=== PATIENT | male | born 1925 | race Caucasian/White ===

== ENCOUNTER 2016-07-07 12:00 | Inpatient (IN) | payer OTHER ==
[~2016-07-07] VITALS: Ht 170.2 cm; Wt 98.1 kg
[~2016-07-07 12:00] MED LIST: AMIO100T4 PO; ASPI-650 PO; COU3 PO; METO25TA7 PO; ROSU20TA PO
[2016-07-07] MEDS ORDERED: WARF1TAB PO (16:10)
--- NOTE | 2016-07-07 16:11 | RADRPT ---
PROCEDURE: CT Abdomen and Pelvis without contrast. CLINICAL INDICATION: Pain. TECHNIQUE: Multiple contiguous axial CT images of the abdomen and pelvis were obtained without the administration of intravenous contrast. Coronal and sagittal reconstructions were also performed. CTDIvol (mGy): 20.89; Total Exam DLP (mGy-cm): 1292.68. One or more of the following dose reduction techniques were utilized: - Automated exposure control. - Adjustment of the mA and/or kV according to patient size. - Use of iterative reconstruction technique. COMPARISON: 03/25/2016. FINDINGS: Limited imaging of the lower thorax is unremarkable. The liver and spleen are homogeneous in density. There is a 1.7 cm stone within the gallbladder lum en. The gallbladder is not distended. There is no gallbladder wall thickening or pericholecystic e sherry. An internal biliary stent is now in place. Mild pneumobilia is observed. Fatty atrophy of t he pancreas is present. The adrenal glands are unremarkable. The kidneys are symmetric in size. There are no nephroureteral stones. There is no hydronephrosis o r abnormal perinephric inflammation. Right renal cysts are unchanged. The abdominal aorta is normal in caliber. Atherosclerotic calcification is present. There is no per iaortic / retroperitoneal lymphadenopathy. The stomach is collapsed. The small intestines are unremarkable. Diffuse diverticulosis is present . There is a large left inguinal hernia containing a small portion of the sigmoid colon which conta ins a small cluster of diverticula. There is marked inflammatory edema within the hernia sac which may be a result of acute diverticulitis. There is no evidence of pneumatosis or pneumoperitoneum. T here is no dilatation of the bowel within the hernia sac. There is no associated intestinal obstruc tion. There is a slightly smaller fat containing right inguinal hernia. Surgical changes compatible with umbilical hernia repair are now observed. Mild residual fat stranding within the periumbilical soft tissues is present. The bladder is partially distended and normal in contour with mild concentric wall thickening. Ther e is mild dilatation of the prostatic urethra which may be a result of prior TURP. There is no free pelvic fluid. There is no pelvic sidewall or inguinal lymphadenopathy. Severe multilevel degenerative disk disease of the lumbar spine is present. Median sternotomy wires are partially visualized. IMPRESSION: Large left inguinal hernia containing a small portion of sigmoid colon, which contains a small clust er of diverticula. There is marked inflammatory edema within the hernia sac which may be a result o f acute diverticulitis. Edema as a result of incarcerated inguinal hernia cannot be excluded. Vladimir elate with appropriate clinical data. No intestinal obstruction. Cholelithiasis. No evidence of acute cholecystitis. Interval placement of internal biliary stent with mild pneumobilia. RPTAT: HLST .Avril Guidry MD, MD Date Time Electronically viewed and signed by .Avril Guidry MD, on 07/07/2016 16:11 .T/
[2016-07-07] MEDS ORDERED: AMIO200T2 PO (16:13)
[2016-07-07] MEDS ORDERED: SOD CHLORIDE 0.9% 1,000 ML IV STA (16:33)
[2016-07-07 17:16] LABS: HEMATOCRIT 33.2 % (42.0-52.0); HEMOGLOBIN 11.1 g/dl (14.0-18.0); MEAN CORPUSCULAR HEMOGLOBIN 27.4 pg (29.0-33.0); MEAN CORPUSCULAR HGB CONC 33.3 g/dl (32.0-37.0); MEAN CORPUSCULAR VOLUME 82.2 fl (82.0-101.0); MEAN PLATELET VOLUME 7.9 fl (7.4-10.4); PLATELET COUNT 129 10^3/UL (140-440); RED BLOOD COUNT 4.04 10^6/ul (4.70-6.10); RED CELL DISTRIBUTION WIDTH 16.2 % (11.5-14.5); UNCORRECTED WBC 5.2 10^3/ul (4.8-10.8); WHITE BLOOD COUNT 5.2 10^3/ul (4.8-10.8)
[2016-07-07 17:17] LABS: ALBUMIN 3.6 g/dl (3.3-4.9); INR 2.16; PROTIME 24.3 Sec (12.2-14.2); PT RATIO 1.9
[2016-07-07 17:18] LABS: POTASSIUM 4.4 mmol/L (3.5-5.1)
[2016-07-07 17:19] LABS: CONDITION 1; LH ANALYZER COMMENTS 1
--- NOTE | 2016-07-07 17:19 | ERA ---
ER Documentation Chief Complaint Date/Time DATE: 07/07/16 TIME: 17:08 Chief Complaint SENT BY PMD FOR ABD PAIN, HERNIA TO LEFT LOWER AND TESTICULAR AREA. HPI 89-year-old man referred here by his PMD for left lower abdominal swelling and discomfort which occurred today while he was straining on the toilet. The pain radiates down to the left scrotum although patient denies any obvious scrotal deformity or discoloration. Patient does have a history of ventral and inguinal hernias post laparoscopic resection a few months ago ROS All systems reviewed and are negative except as per history of present illness. Medications Home Meds Reported Medications Amiodarone Hcl* (Amiodarone Hcl*) 200 Mg Tablet, 100 MG PO DAILY, #30 TAB 07/07/16 Warfarin Sodium* (Jantoven*) 1 Mg Tablet, 1 MG PO TID, TAB 07/07/16 Metoprolol Succinate* (Toprol XL*) 25 Mg Tab.sr.24h, 25 MG PO BID, #30 TAB 04/05/16 Aspirin (Aspirin) 81 Mg Tablet, 81 MG PO DAILY for PRN PATIENT TAKE ASPIRIN NEEDED 02/05/12 Rosuvastatin Calcium* (Crestor*) 20 Mg Tablet, 20 MG PO HS 06/17/11 Discontinued Reported Medications Warfarin Sod (Coumadin) 3 Mg Tab, 3 MG PO, TAB THURSDAY, THURSDAY, THURSDAY, THURSDAY, AND THURSDAY, (NOT TUESDAYS AND THURSDAYS). 04/05/16 Warfarin Sod (Coumadin) 3 Mg Tab, 4 MG PO, TAB ON TUESDAYS AND THURSDAYS ONLY. 04/05/16 Amiodarone Hcl* (Amiodarone Hcl*) 100 Mg Tablet, 50 MG PO DAILY, #30 TAB 04/05/16 Allergies Allergies: Coded Allergies: No Known Allergy (Verified , 07/07/16) PMhx/Soc Aortic valve replacement, recent ventral and inguinal hernias post laparoscopic resection History of Surgery: Yes Anesthesia Reaction: No Hx Neurological Disorder: No Hx Respiratory Disorders: No Hx Cardiac Disorders: Yes Hx Psychiatric Problems: No Hx Miscellaneous Medical Probl: Yes (pls see EMR) Hx Alcohol Use: Yes Hx Substance Use: No Hx Tobacco Use: Yes Smoking Status: Never smoker FmHx Family History: No diabetes Physical Exam Vitals Vital Signs Date Time Temp Pulse Resp B/P Pulse Ox O2 Delivery O2 Flow Rate FiO2 07/07/16 12:17 98.5 64 20 144/82 97 Physical Exam GENERAL: Well-developed, well-nourished, well-hydrated, in no apparent distress , looks nontoxic in appearance HEENT: Moist mucous membranes, pink conjunctiva, no cervical spine tenderness or step-off deformities, no goiter, no jaundice or icterus, extraocular movements intact without pain. No submandibular induration, and no pharyngeal erythema NEURO: Alert and oriented 3, cranial nerves II through XII intact bilaterally, pupils equal round reactive to light, no focal deficits or facial asymmetry, sensation intact distally Strength 5/5 in upper and lower extremities bilaterally CARDIAC: Regular rate and rhythm, no murmurs rubs or gallops LUNGS: Clear bilaterally no wheezing crackles or stridor ABDOMEN: Large left lower inguinal hernia about the size of a golf ball, firm and tender to touch, irreducible, no skin discoloration, scrotum appears normal , otherwise abdomen is benign to touch SKIN: Warm and dry to touch, no abrasions, contusions, or hematomas, no lacerations, no ecchymosis, no target lesions, and without ulcers EXTREMITIES: No clubbing cyanosis or edema, calves are bilaterally symmetrical, no Homans sign, no popliteal cord sign. Distal pulses equal and bilateral PSYCH: Normal affect without agitation or irritability Result Diagram: 07/07/16 1640 07/07/16 1640 Results 24 hrs Laboratory Tests Test 07/07/16 16:40 07/07/16 17:23 Alanine Aminotransferase (ALT/SGPT) 20IU/L Albumin 3.6g/dl Albumin/Globulin Ratio 1.02 Alkaline Phosphatase 92IU/L Anion Gap 14 Aspartate Amino Transf (AST/SGOT) 32IU/L Basophils # Pending Basophils % Pending Blood Morphology Comment Blood Urea Nitrogen 26mg/dl Calcium Level 9.0mg/dl Carbon Dioxide Level 28mmol/L Chloride Level 100mmol/L Creatinine 1.64mg/dl Direct Bilirubin 0.00mg/dl Eosinophils # Pending Eosinophils % Pending Globulin 3.50g/dl Glucose Level 83mg/dl Hematocrit 33.2% Hemoglobin 11.1g/dl INR International Normalized Ratio 2.16 Indirect Bilirubin 0.6mg/dl Lipase 30U/L Lymphocytes # Pending Lymphocytes % Pending Mean Corpuscular Hemoglobin 27.4pg Mean Corpuscular Hemoglobin Concent 33.3g/dl Mean Corpuscular Volume 82.2fl Mean Platelet Volume 7.9fl Monocytes # Pending Monocytes % Pending Neutrophils # Pending Neutrophils % Pending Nucleated Red Blood Cells # Pending Nucleated Red Blood Cells % Pending Platelet Count 69043^3/UL Potassium Level 4.4mmol/L Prothrombin Time 24.3Sec Prothrombin Time Ratio 1.9 Red Blood Count 4.0410^6/ul Red Cell Distribution Width 16.2% Sodium Level 138mmol/L Total Bilirubin 0.6mg/dl Total Protein 7.1g/dl Troponin I 0.094ng/ml White Blood Count 5.210^3/ul Urine Bacteria FEW Urine Bilirubin NEGATIVE Urine Clarity CLEAR Urine Color LT. YELLOW Urine Epithelial Cells OCCASIONAL Urine Glucose NEGATIVE% Urine Hemoglobin 3+ Urine Ketones TRACE Urine Leukocyte Esterase NEGATIVE Urine Microscopic RBC 25-50/HPF Urine Microscopic WBC 0-2/HPF Urine Nitrite NEGATIVE Urine Specific [place] 1.020 Urine Total Protein 1+ Urine Urobilinogen 1.0 E.U./dL Urine pH 6.0 Current Medications Medications (Trade) Dose Ordered Sig/Hsaw Route PRN Reason Start Time Stop Time Status Last Admin Dose Admin Sodium Chloride (NS) 1,000 ml @ 1,000 mls/hr Q1H STAT IV 07/07/16 16:33 07/07/16 17:32 DC 07/07/16 16:57 Procedures/MDM I attempted bedside manual reduction of his left inguinal hernia about 10% was reduced just based on size although there continues to be a significant swelling and I suspect incarceration. CT scan of the abdomen and pelvis was performed revealing a large left inguinal hernia with sigmoid colon in the hernia sac and surrounding inflammatory changes concerning for diverticulitis versus incarcerated strangulated hernia. Please refer to radiologist dictation for full report. Surgical consultation was obtained with his surgeon Dr. Lee, he agreed to consult the patient. I spoke to the patient's primary care physician, we will admit the patient to [facility] for continued reticle and surgical management. IV line was obtained, patient placed on shelter monitor rhythm strip revealed a sinus rhythm at about 60 bpm with upright P and T waves. Patient was afebrile. I administered 1 L normal saline intravenously. EKG performed, read by me revealed a sinus bradycardia 56 bpm, left axis deviation and a right bundle branch block with a QRS duration of 160 ms, no concerning ST elevations or depressions noted. Patient was anticoagulated with an INR of 2, CBC and electrolytes are unremarkable, liver function tests normal, troponin negative, urine analysis was negative for infection. Departure Diagnosis: Primary Impression: Incarcerated left inguinal hernia Condition: ALLY Durant MD Jul 07, 2016 17:18
[2016-07-07 17:20] LABS: ALBUMIN/GLOBULIN RATIO 1.02; BILIRUBIN,INDIRECT 0.6 mg/dl (0-1.1); BILIRUBIN,TOTAL 0.6 mg/dl (0.2-1.3); CREATININE 1.64 mg/dl (0.61-1.24); TOTAL PROTEIN 7.1 g/dl (6.1-8.1)
[2016-07-07 17:33] LABS: TROPONIN-I 0.094 ng/ml (0.00-0.12)
[2016-07-07 17:40] LABS: ADD UMIC YES; URINE BILIRUBIN (Dip) NEGATIVE (NEGATIVE); URINE BLOOD (Dip) 3+ (NEGATIVE); URINE COLOR LT. YELLOW (YELLOW); URINE GLUCOSE (Dip) NEGATIVE (NEGATIVE); URINE KETONES (Dip) TRACE (NEGATIVE); URINE LEUKOCYTE ESTERASE (Dip) NEGATIVE (NEGATIVE); URINE NITRITE (Dip) NEGATIVE (NEGATIVE); URINE TOTAL PROTEIN (Dip) 1+ (NEGATIVE); URINE UROBILINOGEN (Dip) 1.0 E.U./dL (0.1-1.0)
[2016-07-07 17:46] VITALS: BP 168/77; RESP 18
[2016-07-07 17:53] LABS: BACTERIA,URINE FEW; URINE RBCS 25-50 /HPF (0)
[2016-07-07 17:58] VITALS: Ht 170.2 cm; Wt 98.1 kg
[2016-07-07 18:42] LABS: EOSINOPHILS # 0.1 10^3/ul (0.0-0.5); LYMPHOCYTES # 0.8 10^3/ul (0.8-2.9); MONOCYTE # 0.6 10^3/ul (0.3-0.9); NEUTROPHIL # 3.6 10^3/ul (1.6-7.5)
[2016-07-07 18:45] LABS: ANISOCYTOSIS 1+; HYPOCHROMASIA 1+
[2016-07-07 18:46] LABS: PLATELET ESTIMATE PLT APPEAR ADEQUATE
[2016-07-07] MEDS ORDERED: hydrALAzine 20 MG INJ IV PRN (19:00)
[2016-07-07] MEDS ORDERED: ONDANSETRON 4 MG INJ IV PRN (19:00)
[2016-07-07] MEDS ORDERED: morphine 2 MG INJ IV PRN (19:00)
[2016-07-07] MEDS ORDERED: ACETAMINOPHEN 325 MG TAB PO PRN (19:00)
[2016-07-07] MEDS ORDERED: PHYTONADIONE 5 MG in DEXTROSE 5% 50 ML IVPB ONE (19:00)
[2016-07-07] MEDS: SOD CHLORIDE 0.9% 1,000 ML IV SCH (20:06)
[2016-07-07 20:20] VITALS: BP 142/63; RESP 18
--- NOTE | 2016-07-07 20:24 | HP ---
DATE OF ADMISSION: 07/07/2016 ADMITTING DIAGNOSIS: Incarcerated left inguinal hernia. HISTORY OF PRESENT ILLNESS: The patient is an 89-year-old male with coronary artery disea se, osteoarthritis, hypertension, hyperlipidemia, aortic valve replacement and prior hernia repair i n March of last year who presented to my office today with left-sided abdominal pain, redness and swelling over the last few days. The patient reports that he had been constipated and had been havi ng the urge to have a bowel movement and was straining. The patient felt more pain in the left lowe r groin area, and the over the last few days the pain became worse, and redness started over the las t 2 days. The patient denies any fevers, chills, night sweats. The patient denies any diarrhea but did have a bowel movement today but had not had one for over 3 days prior to today. REVIEW OF SYSTEMS: Otherwise unremarkable. No chest pain, palpitations, orthopnea. No nausea or v omiting. No fevers, chills, night sweats. No dizziness, no headaches, no blurred vision. No rashe s. No hematuria. PAST MEDICAL HISTORY: Coronary disease, status post stent; aortic stenosis, status post aortic valv e replacement; hypertension; hyperlipidemia; BPH; carpal tunnel syndrome; osteoarthritis; hyperlipid emia; COPD; paroxysmal atrial fibrillation. PAST SURGICAL HISTORY: Status post umbilical hernia repair, bilateral inguinal hernia repair as wel l as stent in 03/2016, status post sphincterotomy and ERCP with stent placement due to choledocholit hiasis done in 03/2016. Also status post coronary bypass grafting x1 with the aortic valve replacem ent with bovine valve, status post left total knee replacement and status post transurethral resecti on of the prostate. FAMILY HISTORY: Noncontributory. ALLERGIES: NONE. MEDICATIONS: 1. Amiodarone 100 mg daily. 2. Coumadin as directed. 3. Crestor 20 mg daily. 4. Metoprolol XL 25 mg daily. 5. Alfuzosin 10 mg daily. 6. Aspirin 81 mg daily. SOCIAL HISTORY: The patient is a but remarried and lives with his . No tobacco. Occas ional alcohol use. PHYSICAL EXAMINATION: VITAL SIGNS: Temperature 97.7, blood pressure 168/77, pulse of 59, respirations 18, oxygen saturati on 98% on room air. GENERAL: Well-developed, well-nourished male. No acute distress. SKIN: Without rashes. HEENT: EOMI, PERRLA. Oropharynx clear. NECK: No jugular venous distention. 2+ carotid upstroke without bruits. No thyromegaly. No lymph adenopathy. CHEST: Clear to auscultation bilaterally. HEART: Bradycardic, regular. There is a I/ systolic ejection murmur in the right upper sternal b order. ABDOMEN: Obese. Well-healed scars with some firmness around the umbilical scar but nontender. Rig ht groin mild edema but nontender. Left groin with erythema with a nonreducible hernia and moderate tenderness to palpation. Normoactive bowel sounds. No rebound tenderness noted. RECTAL: Heme negative. EXTREMITIES: No cyanosis, clubbing. There is trace edema bilaterally. NEUROLOGIC: Nonfocal. LABORATORY EXAMINATION: Hemoglobin of 11.1, hematocrit of 33.2, platelets of 129, white blood cell count 5.2. PT of 24.3, INR of 2.16. Urinalysis shows 25 to 50 red blood cells, 0 to 2 red blood ce lls, 3+ hemoglobin, negative glucose, 1+ protein, negative leukocyte esterase, negative nitrite. Ch emistries: Sodium 138, potassium 4.4, chloride 100, bicarbonate 28, BUN of 26, creatinine 1.64, glu cose 83, AST 32, ALT of 20, alkaline phosphatase 92. Troponin 0.094. IMAGING: Abdominopelvic CT scan without contrast shows large left inguinal hernia containing a smal l portion of sigmoid colon which contains a small cluster of diverticula. There is marked inflammat ory edema within the hernial sac which may be result of acute diverticulitis or other. Edema as a r esult of incarcerated inguinal hernia cannot be excluded. No intestinal obstruction, cholelithiasis . No evidence of acute cholecystitis. Interval placement of internal biliary stent with mild pneumo bilia. IMPRESSION: The patient is an 89-year-old male with a probable incarcerated left inguinal hernia. The patient had recent hernia repair laparoscopically done in March, but the patient has been cons tipated and with pushing has caused this to fail. The patient is being admitted to Med/Surg for fur ther evaluation and treatment. 1. Incarcerated inguinal hernia. Will place patient n.p.o. except for sips with medications. Will give patient p.r.n. analgesics with morphine as well as IV Zofran if the patient gets nauseated. W ill have Dr. Lee see the patient from surgical standpoint as the patient will likely need surger y soon. 2. Coronary artery disease/aortic valve replacement, status post paroxysmal atrial fibrillation/ hy pertension. This remains stable. Will continue with the patient's routine medications but hold his Coumadin. Will give vitamin K x1 to reverse the coagulopathy in anticipation of upcoming surgery. Will give p.r.n. hydralazine if his blood pressure goes over 180 systolic or 100 diastolic. 3. Hyperlipidemia. Will continue with patient's diet as well as statin. The patient is on Crestor but nonformulary here and will give atorvastatin instead. Dictated By: SUE INFANTE MD SR/NTS Conf#: [id number] DID#: [id number]
[2016-07-07] MEDS: ATORVASTATIN 40 MG TAB PO SCH (20:44)
[2016-07-07] MEDS: CIPROFLOXACIN 400MG/D5W 200 ML IVPB SCH (22:08)
[2016-07-07] MEDS: metroNIDAZOLE 500 MG/NS (PMX) 100 ML IVPB SCH (23:10)
--- NOTE | 2016-07-07 23:43 | CONS ---
Date/Time of Note Date/Time of Note DATE: 07/07/16 TIME: 23:42 Assessment/Plan Assessment/Plan Chief Complaint/Hosp Course 1. Incarcerated recurrent left inguinal hernia with sigmoid colon -Antibiotics -IV fluids -Medical optimization -Will need surgical repair 2. Small recurrent right inguinal hernia, asymptomatic -monitor 3. Obesity, BMI 34 -nutritional optimization -exercise 4. Cholelithiasis with hx of Choledocholithiasis s/p ERCP and biliary stent ( still in place) and Pneumobilia -eventual lap bruce -GI for removal of stent 5. Constipation and Obesity both as source of recurrence -bowel regimen -weight loss encouraged 6. Paroxysmal A. fib on anticoagulation with coagulopathy -Possible strangulation will need to proceed as soon as possible 7. Hypertension -Diet and medication control -Encourage weight loss 8. COPD -Patient as optimized as possible for surgery however due to and urgency of the surgery will need to proceed anyway's -Pulmonary toilet 9. Coronary artery disease and atherosclerotic disease -Cardiac optimization Thank you very much for consulting me in this patient's care, Problems: Consultation Date/Type/Reason Admit Date/Time Jul 07, 2016 at 17:33 Date of Consultation: Jul 07, 2016 Type of Consultation: Gen Surgical Reason for Consultation Recurrent incarcerated left inguinal hernia Obesity Abdominal pain Anemia Diverticulosis Referring Provider: SUE INFANTE MD- Hx of Present Illness Raulito Castellano is an 89-year-old male with multiple significant comorbidities who reports being constipated for a few days and was straining a significant amount. After all the straining he started developing pain and swelling and redness in the left groin. He presented to his primary and was referred to the emergency room for evaluation which found incarcerated sigmoid colon in a recurrent left inguinal hernia. The patient denies any fevers, chills, or night sweats. The patient denies any nausea, vomiting. He denies any chest pain , shortness of breath, visual or neurologic changes. He denies any dysuria. He denies any trauma or sick contacts. Surgical consult is obtained for further evaluation and treatment. 12 point review of systems are negative unless addressed in hpi Past Medical History Aortic stenosis Coronary artery disease, status post MANDUJANO graft to the LAD Morbid obesity BMI of 37 Hypertension Benign prostatic hypertrophy Carpal tunnel syndrome Osteoarthritis Hyperlipidemia COPD Paroxysmal AFib on anticoagulation Incarcerated ventral hernia Incarcerated recurrent left inguinal hernia with sigmoid colon Right recurrent inguinal hernia Choledocholithiasis Cholelithiasis Diverticulosis Atherosclerosis Past Surgical History Aortic valve replacement with bovine valve Coronary bypass grafting x1 (MANDUJANO to LAD) Coronary artery stents Left total knee replacement Transurethral resection of the prostate Lap BIHR and ventral hernia repair 03/2016 Family History Significant Family History: no pertinent family hx Social History The patient is a , but remarried and lives with his current Alcohol Use: occasionally Smoking Status: Former smoker Drug Use: none Smoking Status: Never smoker Exam/Review of Systems Vital Signs Vitals Vital Signs Date Time Temp Pulse Resp B/P Pulse Ox O2 Delivery O2 Flow Rate FiO2 07/07/16 20:20 98.3 51 18 142/63 97 Exam GENERAL: No acute distress, morbidly obese SKIN: Without rashes or jaundice. HEENT: EOMI, PERRLA. Oropharynx clear without exudate. No icterus. NECK: No JVD. Supple. NT. No lymphadenopathy. N LUNGS: Normal respiratory effort HEART: Bradycardic, but regular. ABDOMEN: Obese. Incarcerated left inguinal hernia with min erythema. Tender. No rebound, guarding, rigidity. GENITOURINARY: Normal male. No masses. RECTAL: Heme negative per primary EXTREMITIES: Trace edema bilaterally. Moves extremities grossly. NEUROLOGIC: Nonfocal. PSYCH: Normal mood Results Result Diagram: 07/07/16 1640 07/07/16 1640 Results 24 hrs Laboratory Tests Test 07/07/16 16:40 07/07/16 17:23 Alanine Aminotransferase (ALT/SGPT) 20 Albumin 3.6 Albumin/Globulin Ratio 1.02 Alkaline Phosphatase 92 Anion Gap 14 Anisocytosis 1+ Aspartate Amino Transf (AST/SGOT) 32 Basophils # 0.0 Basophils % 0.0 Blood Morphology Comment Blood Urea Nitrogen 26 H Calcium Level 9.0 Carbon Dioxide Level 28 Chloride Level 100 Creatinine 1.64 H Direct Bilirubin 0.00 Eosinophils # 0.1 Eosinophils % 2.0 Globulin 3.50 H Glucose Level 83 Hematocrit 33.2 L Hemoglobin 11.1 L Hypochromasia 1+ INR International Normalized Ratio 2.16 Indirect Bilirubin 0.6 Large Platelets FEW Lipase 30 Lymphocytes # 0.8 Lymphocytes % 16.0 Mean Corpuscular Hemoglobin 27.4 L Mean Corpuscular Hemoglobin Concent 33.3 Mean Corpuscular Volume 82.2 Mean Platelet Volume 7.9 Monocytes # 0.6 Monocytes % 12.0 H Neutrophils # 3.6 Neutrophils % 70.0 Nucleated Red Blood Cells # 0.0 Nucleated Red Blood Cells % 0.0 Platelet Count 129 #L Platelet Estimate PLT APPEAR ADEQUATE Potassium Level 4.4 Prothrombin Time 24.3 H Prothrombin Time Ratio 1.9 Red Blood Count 4.04 L Red Cell Distribution Width 16.2 H Sodium Level 138 Total Bilirubin 0.6 Total Protein 7.1 Troponin I 0.094 White Blood Count 5.2 # Urine Bacteria FEW Urine Bilirubin NEGATIVE Urine Clarity CLEAR Urine Color LT. YELLOW Urine Epithelial Cells OCCASIONAL Urine Glucose NEGATIVE Urine Hemoglobin 3+ H Urine Ketones TRACE Urine Leukocyte Esterase NEGATIVE Urine Microscopic RBC 25-50 Urine Microscopic WBC 0-2 Urine Nitrite NEGATIVE Urine Specific [place] 1.020 Urine Total Protein 1+ H Urine Urobilinogen 1.0 E.U./dL Urine pH 6.0 Medications Medications Current Medications Amiodarone HCl (Cordarone) 100 mg DAILY PO ; Start 07/08/16 at 09:00 Metoprolol Succinate (Toprol Xl) 25 mg DAILY PO ; Start 07/08/16 at 09:00 Atorvastatin Calcium (Lipitor) 40 mg HS PO Last administered on 07/07/16 20:44 ; Admin Dose 40 MG; Start 07/07/16 at 21:00 Ondansetron HCl (Zofran Inj) 4 mg Q4H PRN IV NAUSEA AND/OR VOMITING; Start 07/07 at 19:00 Morphine Sulfate (morphine) 2 mg Q3H PRN IV PAIN LEVEL 6-10; Start 07/07/16 at 19:00 Acetaminophen 650 mg 650 mg Q4H PRN PO PAIN AND OR ELEVATED TEMP; Start at 19:00 Ciprofloxacin/ Dextrose 200 ml @ 200 mls/hr Q24H IVPB Last administered on 07/07 22:08; Admin Dose 200 MLS/HR; Start 07/07/16 at 21:00 Metronidazole (Flagyl 500 Mg (Pmx)) 100 ml @ 100 mls/hr Q8 IVPB Last administered on 07/07/16 23:10; Admin Dose 100 MLS/HR; Start 07/07/16 at 22:00 Hydralazine HCl 10 mg 10 mg Q6H PRN IV sbp >180 or dbp >100; Start 07/07/16 at 19:00 Sodium Chloride (NS) 1,000 ml @ 80 mls/hr [id number] IV Last administered on t 20:06; Admin Dose 80 MLS/HR; Start 07/07/16 at 19:00; Stop 07/08/16 at 19:59 ROLANDA CALDWELL MD Jul 07, 2016 23:43 ROLANDA CALDWELL MD Jul 07, 2016 23:43
[2016-07-08] VITALS (15 sets, daily range): BP systolic 111–161; BP diastolic 56–70; PULSE 76–91; RESP 17–23
[2016-07-08] MEDS ORDERED: POLYMYXIN/BACITRACIN 1L IRRIG IRR ONE
[2016-07-08] MEDS: metroNIDAZOLE 500 MG/NS (PMX) 100 ML IVPB SCH ×3 (05:58→23:03)
[2016-07-08 06:35] LABS: INR 1.61; PROTIME 19.3 Sec (12.2-14.2); PT RATIO 1.5
[2016-07-08 06:36] LABS: PARTIAL THROMBOPLASTIN TIME 44.1 Sec (25.0-35.0)
[2016-07-08 06:42] LABS: BASOPHILS % 0.5 % (0.0-2.0); EOSINOPHILS % 0.8 % (0.0-7.0); HEMATOCRIT 30.5 % (42.0-52.0); HEMOGLOBIN 10.2 g/dl (14.0-18.0); LYMPHOCYTES # 0.9 10^3/ul (0.8-2.9); LYMPHOCYTES % 20.9 % (15.0-51.0); MEAN CORPUSCULAR HEMOGLOBIN 27.6 pg (29.0-33.0); MEAN CORPUSCULAR HGB CONC 33.6 g/dl (32.0-37.0); MEAN CORPUSCULAR VOLUME 82.3 fl (82.0-101.0); MEAN PLATELET VOLUME 7.8 fl (7.4-10.4); MONOCYTE # 0.8 10^3/ul (0.3-0.9); MONOCYTES % 19.2 % (0.0-11.0); NEUTROPHIL # 2.6 10^3/ul (1.6-7.5); NEUTROPHILS % 58.6 % (39.0-77.0); PLATELET COUNT 117 10^3/UL (140-440); RED CELL DISTRIBUTION WIDTH 15.9 % (11.5-14.5); UNCORRECTED WBC 4.4 10^3/ul (4.8-10.8); WHITE BLOOD COUNT 4.4 10^3/ul (4.8-10.8)
[2016-07-08 06:54] LABS: ALBUMIN 3.1 g/dl (3.3-4.9); POTASSIUM 4.2 mmol/L (3.5-5.1)
[2016-07-08 06:56] LABS: BILIRUBIN,INDIRECT 0.7 mg/dl (0-1.1); BILIRUBIN,TOTAL 0.7 mg/dl (0.2-1.3); CREATININE 1.52 mg/dl (0.61-1.24)
[2016-07-08 06:57] LABS: ALBUMIN/GLOBULIN RATIO 0.93; CALCIUM 8.5 mg/dl (8.4-10.2); TOTAL PROTEIN 6.4 g/dl (6.1-8.1)
[2016-07-08] MEDS ORDERED: CEFAZOLIN 1 GM INJ ONE (07:00)
[2016-07-08 07:17] LABS: CONDITION 1; LH ANALYZER COMMENTS 1
[2016-07-08] MEDS: SOD CHLORIDE 0.9% 1,000 ML IV SCH ×2 (07:30→18:10)
[2016-07-08] MEDS: METOPROLOL (XL) 25 MG TAB PO SCH (08:35)
[2016-07-08] MEDS: AMIODARONE 200 MG TAB PO SCH (08:35)
[2016-07-08] MEDS ORDERED: ALBUTEROL 0.083% (NEB) 2.5 MG/3 ML AMP HHN PRN (09:30)
[2016-07-08] MEDS ORDERED: PHYTONADIONE 5 MG in DEXTROSE 5% 50 ML IVPB SCH (10:30)
[2016-07-08] MEDS ORDERED: BUPIVACAINE 0.25%/EPI (SDV) 30 ML INJ ONE (11:22)
[2016-07-08] MEDS ORDERED: POLYMYXIN/BACITRACIN 1L IRRIG ONE (11:22)
[2016-07-08] MEDS ORDERED: LIDOCAINE 1% (STERILE-PAK) 30 ML INJ ONE (11:22)
--- NOTE | 2016-07-08 12:10 | SP ---
MEDICAL PROGNESS NOTE: DATE OF VISIT: 07/08/16 SUBJECTIVE: The patient is feeling a little bit better, had a mild headache this morning, but now has passed. OBJECTIVE: Temperature 98.7, blood pressure 151/70, pulse 53, respirations 18, oxygen saturation 96% on room air. GENERAL: Well-developed male in no acute distress, lying in bed. Lungs clear to auscultation bilaterally. Heart bradycardic. I/ systolic ejection murmur at right upper sternal border. ABDOMEN: Soft, nontender, normoactive bowel sounds. Left inguinal area with mild erythema and mild induration and tenderness to palpation with palpable hernia. EXTREMITIES: No cyanosis, clubbing. Trace edema. LABORATORY EXAMINATION: White blood cell count 4.4, hemoglobin 10.2, hematocrit 30.5, platelet 117. INR of 1.61 with a PT of 19.6, PTT of 44.1, creatinine 1.52, BUN 24, potassium 4.2. ASSESSMENT AND PLAN: 1. Incarcerated left inguinal hernia. Patient is stable and is okay for surgery today. Patient given another injection of vitamin K for his INR of 1.61. Patient is an ASA class 2 anesthesia risk and we may proceed with the surgery as scheduled. 2. CAD/aortic valve replacement/paroxysmal afib/hypertension. This is stable; continue with patient's routine medications, but hold his anticoagulation. 3. Chronic renal insufficiency, chronic kidney disease. This is improved with hydration. The patient is at or below his baseline. 4. Hyperlipidemia. Continue with diet, and give Atorvastatin. 5. Chronic obstructive pulmonary disease. This is not a problem and give p.r.n. nebulizer therapy if patient has breathing issues. Dictated By: SUE INFANTE MD, SR/ARI Conf#: [id number] DID#: [id number]
[2016-07-08] MEDS ORDERED: ROCURONIUM 50 MG INJ ONE ×2 (12:21→13:51)
[2016-07-08] MEDS ORDERED: ETOMIDATE 20 MG INJ ONE (12:21)
[2016-07-08] MEDS ORDERED: ESMOLOL 10 ML ONE (12:34)
[2016-07-08] MEDS ORDERED: LABETALOL HCL 20MG INJ ONE (12:34)
[2016-07-08] MEDS ORDERED: hydrALAzine 20 MG INJ ONE (12:35)
[2016-07-08] MEDS ORDERED: PHENYLephrine (100 MCG/ML) 5ML SYG ONE ×2 (12:42→13:00)
[2016-07-08] MEDS ORDERED: LIDOCAINE 1% (MPF) 30 ML INJ INJ ONE (13:04)
[2016-07-08] MEDS ORDERED: BUPIVACAINE 0.25%/EPI (SDV) 30 ML INJ INJ ONE (13:04)
[2016-07-08] MEDS ORDERED: hydrALAzine 20 MG INJ IV PRN (13:30)
[2016-07-08] MEDS ORDERED: FENTAnyl 50 MCG/ML VIAL IV PRN ×2 (13:30)
[2016-07-08] MEDS ORDERED: DIPHENHYDRAMINE 50 MG INJ IV PRN (13:30)
[2016-07-08] MEDS ORDERED: LABETALOL HCL 20MG INJ IV PRN (13:30)
[2016-07-08] MEDS ORDERED: ONDANSETRON 4 MG INJ IV PRN (13:30)
[2016-07-08] MEDS ORDERED: EPHEDrine SULFATE 50 MG/5 ML SYG IV PRN (13:30)
[2016-07-08] MEDS ORDERED: morphine (1 MG/ML) 10ML SYRINGE IV PRN ×3 (13:30)
[2016-07-08] MEDS ORDERED: DEXAMETHASONE 4 MG/ML 1 ML INJ ONE (13:34)
[2016-07-08] MEDS ORDERED: ONDANSETRON 4 MG INJ ONE (13:34)
[2016-07-08] MEDS ORDERED: NEOSTIGMINE 3 MG/3 ML SYRINGE ONE (15:32)
[2016-07-08] MEDS ORDERED: GLYCOPYRROLATE 0.4 MG INJ ONE (15:32)
[2016-07-08] MEDS: FENTAnyl 50 MCG/ML VIAL IV PRN ×2 (15:59→16:11)
[2016-07-08] MEDS ORDERED: HYDROCODONE/APAP (5/325) TAB PO PRN (16:30)
[2016-07-08] MEDS ORDERED: SENNA/DOCUSATE NA (8.6MG/50MG) TAB PO PRN (16:30)
--- NOTE | 2016-07-08 16:36 | PN ---
Date/Time of Note Date/Time of Note DATE: 07/08/16 TIME: 16:33 Assessment/Plan Lines/Catheters IV Catheter Type (from [facility]): Peripheral IV Farr in Place (from [facility]): No Assessment/Plan Chief Complaint/Hosp Course 1. Incarcerated recurrent left inguinal hernia with sigmoid colon -Antibiotics -IV fluids -Medical optimization -Will need surgical repair 2. Small recurrent right inguinal hernia, asymptomatic -monitor 3. Obesity, BMI 34 -nutritional optimization -exercise 4. Cholelithiasis with hx of Choledocholithiasis s/p ERCP and biliary stent ( still in place) and Pneumobilia -eventual lap bruce -GI for removal of stent 5. Constipation and Obesity both as source of recurrence -bowel regimen -weight loss encouraged 6. Paroxysmal A. fib on anticoagulation with coagulopathy -Possible strangulation will need to proceed as soon as possible 7. Hypertension -Diet and medication control -Encourage weight loss 8. COPD -Patient as optimized as possible for surgery however due to and urgency of the surgery will need to proceed anyway's -Pulmonary toilet 9. Coronary artery disease and atherosclerotic disease -Cardiac optimization Thank you very much for consulting me in this patient's care, Problems: Subjective 24 Hr Interval Summary Minimal pain. No nausea vomiting. No fevers or chills. No chest pain or shortness of breath. No headache, visual, or neurologic changes. No dysuria. Redness improved. Exam/Review of Systems Vital Signs Vitals Vital Signs Date Time Temp Pulse Resp B/P Pulse Ox O2 Delivery O2 Flow Rate FiO2 07/08/16 16:11 79 17 157/64 94 Nasal Cannula 2.0 07/08/16 15:49 98.9 Intake and Output 07/07/16 07/07/16 07/08/16 15:00 23:00 07:00 Intake Total 100 ml 1140 ml Output Total 500 ml Balance 100 ml 640 ml Exam Free Text/Dictation GENERAL: No acute distress, morbidly obese SKIN: Without rashes or jaundice. HEENT: EOMI, PERRLA. Oropharynx clear without exudate. No icterus. NECK: No JVD. Supple. NT. No lymphadenopathy. N LUNGS: Normal respiratory effort HEART: Bradycardic, but regular. ABDOMEN: Obese. Incarcerated left inguinal hernia with min erythema. Tender. No rebound, guarding, rigidity. GENITOURINARY: Normal male. No masses. RECTAL: Heme negative per primary EXTREMITIES: Trace edema bilaterally. Moves extremities grossly. NEUROLOGIC: Nonfocal. PSYCH: Normal mood Results Result Diagram: 07/08/16 0550 07/08/16 0550 ROLANDA CALDWELL MD Jul 08, 2016 16:36
--- NOTE | 2016-07-08 16:46 | OPR ---
Date/Time of Note Date/Time of Note DATE: 07/08/16 TIME: 16:36 Operative Report Procedure Date: Jul 08, 2016 Preoperative Diagnosis Recurrent left incarcerated inguinal hernia, strangulation Postoperative Diagnosis Incarcerated left inguinal hernia with strangulated epiploica Operation Performed 1. Repair of recurrent incarcerated and strangulated fat of left inguinal hernia 2. Local anesthetic injection, [id number] 3. Ilioinguinal nerve block Surgeon: ROLANDA CALWDELL MD Anesthesia: general (plus local plus regional) Estimated Blood Loss: 0 - 10 ml's Tubes/Drains Light mesh Complications: None Pt Condition Post Procedure: stable Disposition: PACU Indications Per notes. Risks include but are not limited to bleeding, infection, abscess, seroma, leak , damage to intestines, testicle, spermatic cord, or any intra-abdominal/ intrapelvic structures, hernia formation (recurrence), chronic pain, need for re -operations or further surgeries, MA, stroke, PE, DVT, pneumonia, organ failures , or even . Procedure Description Patient was brought and placed supine on the operating table, and after induction of anesthesia, he was prepped and draped in usual sterile fashion and timeout was performed. SCDs had already been placed. Preoperative antibiotics had already been administered. All pressure points were well-padded. The ilioinguinal nerve block was performed approximately 2 cm medial and inferior to superior anterior iliac spine. Local anesthetic was infiltrated along the incision parallel to the inguinal ligament. Incision was made in the skin and carried through subcutaneous tissue to the external oblique fascia. Fascia was opened sharply. Using Metzenbaums the fascia was opened with care taken not to injure the ilioinguinal nerve. Fascia was opened into the external ring. There was a direct recurrent hernia identified with inflammatory changes. After gentle, meticulous, long dissection , Anne Marie drain was placed around the hernia structures and the cord structures. The hernia sac was opened and colon was identified and reduced. The bowel was healthy. Using then gentle dissection I was able to separate the hernia sac from the cord structures safely. This was difficult and tedious due to the inflammatory changes. Hernia sac was sutured closed with 2-0 Vicryl and then placed back into the abdomen. Bard soft mesh was used to secure to the pubic tubercle 2 with 0 Prolene. The lower suture was ran along the shelving edge all the way lateral to the internal ring. The superior suture was ran along the conjoined tendon past the internal ring as well. The 2 leaves of the mesh were sutured together just lateral to the internal ring. This point the hernia site was fully covered. Wound was irrigated to clear suctioning fluid. There was complete hemostasis. Wound was closed in multiple layers with irrigation between each layer. 2-0 Vicryl was used to close the external fascia and a running fashion leaving space for the external ring. Yrn's fascia was closed with 3-0 Vicryl in running fashion followed by 4-0 Monocryl subcuticular skin closure. Dermabond was applied. Patient was extubated and transferred to recovery room in stable condition and all counts were correct at the end of the operation 2. ROLANDA CALDWELL MD Jul 08, 2016 16:46
[2016-07-08] MEDS: CIPROFLOXACIN 400MG/D5W 200 ML IVPB SCH (21:56)
[2016-07-08] MEDS: ATORVASTATIN 40 MG TAB PO SCH (21:59)
[2016-07-09] MEDS: metroNIDAZOLE 500 MG/NS (PMX) 100 ML IVPB SCH ×3 (05:50→22:16)
[2016-07-09 06:10] LABS: HEMATOCRIT 32.2 % (42.0-52.0); HEMOGLOBIN 10.7 g/dl (14.0-18.0); LYMPHOCYTES # 0.4 10^3/ul (0.8-2.9); LYMPHOCYTES % 6.2 % (15.0-51.0); MEAN CORPUSCULAR HEMOGLOBIN 27.3 pg (29.0-33.0); MEAN CORPUSCULAR HGB CONC 33.3 g/dl (32.0-37.0); MEAN CORPUSCULAR VOLUME 82.1 fl (82.0-101.0); MEAN PLATELET VOLUME 7.8 fl (7.4-10.4); MONOCYTE # 0.7 10^3/ul (0.3-0.9); NEUTROPHIL # 5.3 10^3/ul (1.6-7.5); NEUTROPHILS % 82.8 % (39.0-77.0); PLATELET COUNT 138 10^3/UL (140-440); RED BLOOD COUNT 3.92 10^6/ul (4.70-6.10); RED CELL DISTRIBUTION WIDTH 15.8 % (11.5-14.5); UNCORRECTED WBC 6.4 10^3/ul (4.8-10.8); WHITE BLOOD COUNT 6.4 10^3/ul (4.8-10.8)
[2016-07-09 06:19] LABS: POTASSIUM 4.9 mmol/L (3.5-5.1)
[2016-07-09 06:22] LABS: CALCIUM 8.5 mg/dl (8.4-10.2); CONDITION 1; CREATININE 1.56 mg/dl (0.61-1.24); LH ANALYZER COMMENTS 1
[2016-07-09 08:09] VITALS: BP 182/74; RESP 16
[2016-07-09] MEDS: AMIODARONE 200 MG TAB PO SCH (08:21)
[2016-07-09] MEDS: METOPROLOL (XL) 25 MG TAB PO SCH (08:21)
--- NOTE | 2016-07-09 11:32 | SP ---
DATE OF VISIT: 07/09/2016 MEDICAL PROGRESS NOTE SUBJECTIVE: The patient is without complaint, no pain, no shortness of breath. No chest pain, no palpitations. OBJECTIVE: VITAL SIGNS: Temperature 97.8, pulse 87, respirations 16, blood pressure is 182 /74, oxygen saturation 95% on room air. GENERAL: Well-developed, well-nourished male in no acute distress. LUNGS: Clear to auscultation bilaterally. HEART: Regular rate and rhythm. There is a 1/6 systolic ejection murmur. ABDOMEN: Soft, nontender, normoactive bowel sounds. Wound in the left groin area is clean, dry, and intact, without drainage. LABORATORY EXAMINATION: Shows sodium 135, potassium 4.9, chloride 99, bicarbonate 23, BUN 28, creatinine 1.56, blood sugar 180, calcium of 8.5, white blood cell count 6.4, hemoglobin 10.7, hematocrit 32.2, and platelets of 138. ASSESSMENT AND PLAN: 1. Incarcerated left inguinal hernia, status post repair, postoperative day # 1. The patient is doing well status post surgery. The patient has no pain. Will continue with routine postoperative orders per Dr. Lee as well as early ambulation. We will advance diet as tolerated. 2. Coronary artery disease/paroxysmal atrial fibrillation/aortic valve replacement. We will continue with routine medications and restart anticoagulation tomorrow. 3. Hypertension. It has been elevated today. We will continue with medications as well as p.r.n. hydralazine. 4. Chronic kidney disease, slightly worse today. We will continue to follow. 5. Hyperglycemia is likely related to the patient receiving Decadron yesterday. We will continue to follow. Dictated By: SUE INFANTE MD, SR/ARI Conf#: [id number] DID#: [id number] MTDD
[2016-07-09 19:24] VITALS: BP 168/75; RESP 20
[2016-07-09] MEDS: CIPROFLOXACIN 400MG/D5W 200 ML IVPB SCH (20:27)
[2016-07-09] MEDS: ATORVASTATIN 40 MG TAB PO SCH (20:27)
[2016-07-09 21:30] VITALS: BP 155/72
[2016-07-10] MEDS: metroNIDAZOLE 500 MG/NS (PMX) 100 ML IVPB SCH (05:48)
[2016-07-10 06:39] LABS: POTASSIUM 4.5 mmol/L (3.5-5.1)
[2016-07-10 06:41] LABS: CREATININE 1.43 mg/dl (0.61-1.24)
[2016-07-10 06:42] LABS: CALCIUM 8.7 mg/dl (8.4-10.2); MAGNESIUM 1.8 mg/dl (1.7-2.5)
[2016-07-10 07:15] LABS: EOSINOPHILS % 0.5 % (0.0-7.0); HEMATOCRIT 31.9 % (42.0-52.0); HEMOGLOBIN 10.6 g/dl (14.0-18.0); LYMPHOCYTES # 0.7 10^3/ul (0.8-2.9); MEAN CORPUSCULAR HEMOGLOBIN 27.5 pg (29.0-33.0); MEAN CORPUSCULAR HGB CONC 33.3 g/dl (32.0-37.0); MEAN CORPUSCULAR VOLUME 82.6 fl (82.0-101.0); MEAN PLATELET VOLUME 7.9 fl (7.4-10.4); MONOCYTE # 1.3 10^3/ul (0.3-0.9); MONOCYTES % 14.5 % (0.0-11.0); NEUTROPHIL # 6.8 10^3/ul (1.6-7.5); PLATELET COUNT 136 10^3/UL (140-440); RED BLOOD COUNT 3.86 10^6/ul (4.70-6.10); RED CELL DISTRIBUTION WIDTH 15.6 % (11.5-14.5); UNCORRECTED WBC 8.8 10^3/ul (4.8-10.8); WHITE BLOOD COUNT 8.8 10^3/ul (4.8-10.8)
[2016-07-10 07:26] LABS: CONDITION 1; LH ANALYZER COMMENTS 1
[2016-07-10 07:51] VITALS: BP 165/72; RESP 22
[2016-07-10] MEDS: METOPROLOL (XL) 25 MG TAB PO SCH (08:07)
[2016-07-10] MEDS: AMIODARONE 200 MG TAB PO SCH (08:08)
--- NOTE | 2016-07-10 10:55 | PN ---
DATE: 07/10/2016 SUBJECTIVE: The patient is without complaint. Minimal pain at the surgical site. OBJECTIVE: VITAL SIGNS: Temperature 98.4, pulse 61, respirations 22, blood pressure 165/72, oxygen saturation 94% on room air. GENERAL: Well-developed, well-nourished male in no acute distress, lying in bed. LUNGS: Clear to auscultation bilaterally. HEART: Regular rate and rhythm. There is a I/ systolic ejection murmur. ABDOMEN: Soft, nontender, nondistended. Wound has minimal erythema, no drainage. EXTREMITIES: Trace edema bilaterally. LABORATORY DATA: Sodium of 136, potassium 4.5, chloride 101, bicarbonate 27, BUN 27, creatinine 1.4 3, blood sugar 98. Magnesium 1.8. Hemoglobin of 10.6, hematocrit of 31.9, white blood cell count 8 .8, platelets 136. ASSESSMENT AND PLAN 1. Postoperative day #2 status post repair of incarcerated inguinal hernia. The patient is doing well postoperatively with minimal pain. We will continue with routine postoperative orders per Dr. Lee. 2. Coronary artery disease/paroxysmal atrial fibrillation/hypertension/aortic valve replacement. T he patient is doing well with mild hypertension. We will continue with the patient's medications an d p.r.n. hydralazine. We will hold anticoagulation for now as patient may have a stent removal in t he near future. 3. Status post biliary stent placement for choledocholithiasis. The patient needs to have this rem garland and may be able to get this done while in the hospital this time. We will have Dr. Prater see the patient in consultation and decide if this can be done this hospitalization. 4. Chronic kidney disease is improved with hydration. We will continue to monitor. Dictated By: SUE INFANTE MD SR/NTS Conf#: [id number] DID#: [id number]
[2016-07-10] MEDS: metroNIDAZOLE 500 MG TAB PO SCH ×2 (14:07→20:51)
[2016-07-10] MEDS: CIPROFLOXACIN 250 MG TAB PO SCH (17:18)
[2016-07-10 19:42] VITALS: BP 170/74; RESP 20
[2016-07-10 20:50] VITALS: BP 183/80; PULSE 62; RESP 20
[2016-07-10] MEDS: ATORVASTATIN 40 MG TAB PO SCH (20:51)
[2016-07-10] MEDS: HYDROCODONE/APAP (5/325) TAB PO PRN (23:47)
[2016-07-11] MEDS: CIPROFLOXACIN 250 MG TAB PO SCH ×2 (05:31→18:00)
[2016-07-11 06:49] LABS: POTASSIUM 4.1 mmol/L (3.5-5.1)
[2016-07-11 06:51] LABS: CREATININE 1.31 mg/dl (0.61-1.24)
[2016-07-11 06:52] LABS: CALCIUM 8.8 mg/dl (8.4-10.2)
[2016-07-11 08:00] VITALS: BP 158/73; RESP 18
[2016-07-11] MEDS: metroNIDAZOLE 500 MG TAB PO SCH ×3 (08:39→21:11)
[2016-07-11] MEDS: METOPROLOL (XL) 25 MG TAB PO SCH (08:40)
[2016-07-11] MEDS: AMIODARONE 200 MG TAB PO SCH (08:40)
--- NOTE | 2016-07-11 09:53 | SP ---
MEDICAL PROGRESS NOTE: DATE OF VISIT: 07/11/2016 SUBJECTIVE: The patient is without complaints. No abdominal pain, no nausea. He still has not had a bowel movement. OBJECTIVE: VITAL SIGNS: Temperature 98.4, pulse 78, respirations 18, blood pressure 158/73 , oxygen saturation 94% on room air. GENERAL: Well-developed, well-nourished male, in no acute distress. LUNGS: Clear to auscultation bilaterally. HEART: Regular rate and rhythm. A I/ systolic murmur. ABDOMEN: Obese. Normal active bowel sounds, nondistended, nontender. The wound is clean, dry and intact in the left lower quadrant groin area. LABORATORY EXAMINATION: Sodium 135, potassium 4.1, chloride 101, bicarbonate 26 , BUN 25, creatinine 1.31, glucose 87. ASSESSMENT AND PLAN 1. Status post repair of incarcerated inguinal hernia. The patient continues to do well and will ambulate and advance diet. Continue with routine postoperative orders, per Dr. Lee. 2. History of choledocholithiasis, with stent placement. The patient will have stent removal done tomorrow. Dr. Prater will set this up. Will keep the patient n.p.o. after midnight and continue the patient off anticoagulation. 3. Paroxysmal atrial fibrillation, aortic valve replacement, hypertension, coronary artery disease. This is stable. Will continue off anticoagulation until after the stent removal procedure. 4. Chronic renal insufficiency. Improved with hydration. Dictated By: SUE INFANTE MD, SR/ARI Conf#: [id number] DID#: [id number] ROSENDO
--- NOTE | 2016-07-11 15:16 | CONS ---
DATE OF ADMISSION: 07/07/2016 DATE OF CONSULTATION: 07/10/2016 HISTORY OF PRESENT ILLNESS: The patient is an 89-year-old male with osteoarthritis, hypertension, h yperlipidemia, aortic valve replacement, prior hernia repair came to the hospital complaining of lef t-sided abdominal pain, redness and swelling. Patient was found to have a hernia, went for emergenc y surgery by Dr. Lee. He was also scheduled for removal of the biliary stent. Since he is in [facility], Dr. Cosby requested me to remove the stent before he goes home. Especially, patient on whom the blood thinner needs to be started. The patient denies any nausea, vomiting, no chest pain, no abdominal pain, no GI bleeding. PAST MEDICAL HISTORY: COPD, atrial fibrillation, BPH, aortic valve replacement, hypertension, hyper lipidemia, carpal tunnel syndrome. PAST SURGICAL HISTORY: Coronary artery bypass graft, hernia surgery, transurethral resection of the prostate. Sphincterotomy and removal of the stone and stenting. FAMILY HISTORY: Nothing contributory. ALLERGIES: NONE. MEDICATIONS: All reviewed. SOCIAL HISTORY: The patient lives with his . PHYSICAL EXAMINATION: GENERAL: Looks good for his age. Well-built, nourished, not in distress. VITAL SIGNS: Stable. HEENT: Unremarkable. NECK: Supple, no thyromegaly, no lymphadenopathy. CARDIOVASCULAR: No murmur, gallop or click. LUNGS: Clear. ABDOMEN: Benign. EXTREMITIES: No edema. CENTRAL NERVOUS SYSTEM: Grossly within normal limits. LABORATORY DATA: BUN is 25, creatinine 1.31. WBC is 8.8, hematocrit is 31, which is stable. His c oagulation profile also is normal. All his medications reviewed. The patient is not on any blood thinner. IMPRESSION: 1. Status post-surgery for incarcerated inguinal hernia. 2. Status post biliary stent for choledocholithiasis. 3. Atrial fibrillation. 4. Chronic renal insufficiency. 5. Prosthetic aortic valve. PLAN: Proceed with ERCP and removal of the stent and also stone at the same time. The patient will be off anticoagulant and after the procedure will restart him on Coumadin. Dictated By: TAMMIE WATSON/ARI Conf#: [id number] DID#: [id number] CC: SUE COSBY MD; TAMMIE MCCARTNEY MD;*EndCC*
[2016-07-11] MEDS ORDERED: BISACODYL 10 MG SUPP PR PRN (18:00)
[2016-07-11 20:29] VITALS: BP 161/74; RESP 16
[2016-07-11] MEDS: ATORVASTATIN 40 MG TAB PO SCH (21:11)
[2016-07-12] VITALS (10 sets, daily range): BP systolic 113–167; BP diastolic 55–77; PULSE 76–84; RESP 13–20
[2016-07-12] MEDS: CIPROFLOXACIN 250 MG TAB PO SCH ×2 (05:13→18:02)
[2016-07-12] MEDS ORDERED: IOHEXOL 300MG/ML 30 ML BTL ONE (08:57)
[2016-07-12] MEDS ORDERED: INDOMETHACIN 50 MG SUPP PR ONE (08:57)
[2016-07-12] MEDS: metroNIDAZOLE 500 MG TAB PO SCH ×3 (09:00→20:20)
[2016-07-12] MEDS: METOPROLOL (XL) 25 MG TAB PO SCH ×2 (09:00→13:16)
[2016-07-12] MEDS: AMIODARONE 200 MG TAB PO SCH ×2 (09:00→13:17)
[2016-07-12] MEDS ORDERED: FENTAnyl 50 MCG/ML VIAL ONE (10:18)
[2016-07-12] MEDS ORDERED: PROPOFOL 40 ML ONE (10:18)
[2016-07-12] MEDS ORDERED: METOCLOPRAMIDE 10 MG INJ ONE (10:20)
[2016-07-12] MEDS ORDERED: CEFAZOLIN 1 GM INJ ONE (10:30)
[2016-07-12] MEDS ORDERED: ONDANSETRON 4 MG INJ IV PRN (11:00)
--- NOTE | 2016-07-12 15:00 | QN ---
Documentation Comment Date/Time of Note DATE: 07/09/16 TIME: 16:33 Assessment/Plan Lines/Catheters IV Catheter Type (from [facility]): Peripheral IV Farr in Place (from [facility]): No Assessment/Plan 1. Incarcerated recurrent left inguinal hernia with sigmoid colon s/p open repair 07/08 -Antibiotics -IV fluids -Medical optimization -Diet as tolerated 2. Small recurrent right inguinal hernia, asymptomatic -monitor 3. Obesity, BMI 34 -nutritional optimization -exercise 4. Cholelithiasis with hx of Choledocholithiasis s/p ERCP and biliary stent ( still in place) and Pneumobilia -GI for removal of stent -eventual lap bruce 5. Constipation and Obesity both as source of recurrence -bowel regimen -weight loss encouraged 6. Paroxysmal A. fib on anticoagulation with coagulopathy -Possible strangulation will need to proceed as soon as possible 7. Hypertension -Diet and medication control -Encourage weight loss 8. COPD -Patient as optimized as possible for surgery however due to and urgency of the surgery will need to proceed anyway's -Pulmonary toilet 9. Coronary artery disease and atherosclerotic disease -Cardiac optimization Thank you, Subjective Minimal pain. No nausea or vomiting. No fevers or chills. No chest pain or shortness of breath. No headache, visual, or neurologic changes. No dysuria. Redness improved. Exam/Review of Systems Vital Signs AVSS Exam GENERAL: No acute distress, morbidly obese SKIN: Without rashes or jaundice. HEENT: EOMI, PERRLA. Oropharynx clear without exudate. No icterus. NECK: No JVD. Supple. NT. No lymphadenopathy. N LUNGS: Normal respiratory effort HEART: Bradycardic, but regular. ABDOMEN: Obese. Incarcerated left inguinal hernia with min erythema. Tender. No rebound, guarding, rigidity. GENITOURINARY: Normal male. No masses. RECTAL: Heme negative per primary EXTREMITIES: Trace edema bilaterally. Moves extremities grossly. NEUROLOGIC: Nonfocal. PSYCH: Normal mood Results Noted ROLANDA CALDWELL MD Jul 12, 2016 15:00
--- NOTE | 2016-07-12 15:03 | PN ---
Date/Time of Note Date/Time of Note DATE: 07/12/16 TIME: 15:01 Assessment/Plan Lines/Catheters IV Catheter Type (from [facility]): Peripheral IV Farr in Place (from [facility]): No Assessment/Plan Chief Complaint/Hosp Course 1. Incarcerated recurrent left inguinal hernia with sigmoid colon s/p open repair 07/08 -Antibiotics -IV fluids -Medical optimization -Diet as tolerated 2. Small recurrent right inguinal hernia, asymptomatic -monitor 3. Obesity, BMI 34 -nutritional optimization -exercise 4. Cholelithiasis with hx of Choledocholithiasis s/p ERCP and biliary stent ( still in place) and Pneumobilia -ERCP today -eventual lap bruce 5. Constipation and Obesity both as source of recurrence -bowel regimen -weight loss encouraged 6. Paroxysmal A. fib on anticoagulation with coagulopathy -Possible strangulation will need to proceed as soon as possible 7. Hypertension -Diet and medication control -Encourage weight loss 8. COPD -Patient as optimized as possible for surgery however due to and urgency of the surgery will need to proceed anyway's -Pulmonary toilet 9. Coronary artery disease and atherosclerotic disease -Cardiac optimization Thank you, Problems: Subjective 24 Hr Interval Summary ERCP today. Minimal pain. No nausea or vomiting. No fevers or chills. No chest pain or shortness of breath. No headache, visual, or neurologic changes. No dysuria. Redness improved. Exam/Review of Systems Vital Signs Vitals Vital Signs Date Time Temp Pulse Resp B/P Pulse Ox O2 Delivery O2 Flow Rate FiO2 07/12/16 12:04 97.8 76 18 142/67 94 Room Air 07/12/16 11:23 2.0 Intake and Output 07/11/16 07/11/16 07/12/16 15:00 23:00 07:00 Output Total 400 ml Balance -400 ml Exam Free Text/Dictation GENERAL: No acute distress, morbidly obese SKIN: Without rashes or jaundice. HEENT: EOMI, PERRLA. Oropharynx clear without exudate. No icterus. NECK: No JVD. Supple. NT. No lymphadenopathy. N LUNGS: Normal respiratory effort HEART: Bradycardic, but regular. ABDOMEN: Obese. Incarcerated left inguinal hernia with min erythema. Tender. No rebound, guarding, rigidity. GENITOURINARY: Normal male. No masses. RECTAL: Heme negative per primary EXTREMITIES: Trace edema bilaterally. Moves extremities grossly. NEUROLOGIC: Nonfocal. PSYCH: Normal mood Results Result Diagram: 07/10/16 0520 07/11/16 0526 ROLANDA CALDWELL MD Jul 12, 2016 15:03
[2016-07-12] MEDS: ATORVASTATIN 40 MG TAB PO SCH (20:20)
[2016-07-12] MEDS: ZOLPIDEM 5 MG TAB PO PRN (21:09)
[2016-07-13] VITALS: BP 148/69; PULSE 78
[2016-07-13] MEDS: ZOLPIDEM 5 MG TAB PO PRN ×2 (00:22→22:40)
--- NOTE | 2016-07-13 05:41 | SP ---
MEDICAL PROGNESS NOTE: DATE OF VISIT: 07/12/2016 SUBJECTIVE: The patient is without complaint. The patient is sleeping comfortably. OBJECTIVE: VITAL SIGNS: Temperature 99.1, pulse 74, respirations 18, blood pressure 167/77 , oxygen saturation 97% room air. GENERAL: A well-developed, well-nourished male in no acute distress, lying in bed. CHEST: Clear to auscultation bilaterally. HEART: Regular rate and rhythm. There is a I/ systolic murmur. ABDOMEN: Soft, nontender, nondistended, normoactive bowel sounds. Wound is clean, dry and intact. Mild scrotal edema. EXTREMITIES: Left antecubital area with mild erythema and induration from IV infiltration. The patient is sleeping but arousable. LABORATORY EXAMINATION: None. ASSESSMENT AND PLAN: 1. Incarcerated recurrent left inguinal hernia, status post repair. The patient is doing well with minimal pain and no issues with the wound. We will continue the routine care postoperatively per Dr. Lee. 2. Choledocholithiasis, status post endoscopic retrograde cholangiopancreatography and stent placement in March. The patient underwent removal today and doing well. We will check labs in the morning and advance diet. 3. Coronary artery disease/paroxysmal atrial fibrillation/aortic valve replacement/hypertension, is stable. We will resume anticoagulation tomorrow and continue other routine medications. 4. Renal insufficiency, chronic kidney disease, has improved with hydration. We will recheck chemistry panel in the morning. 5. Constipation. Continue with diet and p.r.n. laxatives. The patient had had a bowel movement though. Dictated By: SUE INFANTE MD, SR/ARI Conf#: [id number] DID#: [id number] MTDD
[2016-07-13] MEDS: CIPROFLOXACIN 250 MG TAB PO SCH ×2 (06:13→17:17)
[2016-07-13 06:46] LABS: BASOPHILS % 0.2 % (0.0-2.0); EOSINOPHILS # 0.1 10^3/ul (0.0-0.5); EOSINOPHILS % 0.8 % (0.0-7.0); HEMATOCRIT 34.1 % (42.0-52.0); HEMOGLOBIN 11.3 g/dl (14.0-18.0); LYMPHOCYTES # 1.2 10^3/ul (0.8-2.9); LYMPHOCYTES % 10.5 % (15.0-51.0); MEAN CORPUSCULAR HEMOGLOBIN 27.5 pg (29.0-33.0); MEAN CORPUSCULAR HGB CONC 33.2 g/dl (32.0-37.0); MEAN CORPUSCULAR VOLUME 82.8 fl (82.0-101.0); MEAN PLATELET VOLUME 7.6 fl (7.4-10.4); MONOCYTE # 1.4 10^3/ul (0.3-0.9); MONOCYTES % 12.6 % (0.0-11.0); NEUTROPHIL # 8.7 10^3/ul (1.6-7.5); NEUTROPHILS % 75.9 % (39.0-77.0); PLATELET COUNT 174 10^3/UL (140-440); RED BLOOD COUNT 4.12 10^6/ul (4.70-6.10); UNCORRECTED WBC 11.5 10^3/ul (4.8-10.8); WHITE BLOOD COUNT 11.5 10^3/ul (4.8-10.8)
[2016-07-13 06:55] LABS: ALBUMIN 3.1 g/dl (3.3-4.9); CONDITION 1; LH ANALYZER COMMENTS 1; POTASSIUM 4.1 mmol/L (3.5-5.1)
[2016-07-13 06:58] LABS: ALBUMIN/GLOBULIN RATIO 0.93; BILIRUBIN,INDIRECT 0.4 mg/dl (0-1.1); BILIRUBIN,TOTAL 0.4 mg/dl (0.2-1.3); CALCIUM 8.8 mg/dl (8.4-10.2); CREATININE 1.65 mg/dl (0.61-1.24); TOTAL PROTEIN 6.4 g/dl (6.1-8.1)
[2016-07-13 07:54] VITALS: BP 140/63; RESP 22
--- NOTE | 2016-07-13 08:23 | GILP ---
DATE OF PROCEDURE: PROCEDURE PERFORMED: Endoscopic retrograde cholangiopancreatography, removal of the stent, and matias aroldo of the stone. INDICATION: The patient is an 89-year-old male undergoing this procedure for the removal of the jignesh nt and also for the complete cholangiogram to make sure no stone is left behind. INFORMED CONSENT: The risks of the procedure, related and unrelated complications, anesthetic risks , alternatives discussed and informed consent was obtained. DESCRIPTION OF PROCEDURE: The patient was brought to the OR room #2, placed in a prone position and after appropriate sedation and administration of antibiotics and Indocin, scope was passed with muc h ease into esophagus, advanced slowly into the bulb. There was slight resistance to the passage of the scope at the apex of the duodenum, maybe it was slightly narrowed. Very gentle pressure was ap plied and the scope was in the second part. Shortened the scope. Stent was identified, successfull y removed along with the scope and patient was rescoped and selectively cannulated. A 12 mm balloon used to sweep the bile duct 7 to 8 times, 1 or 2 small stones came out. The 12 mm balloon would ex it easily and the drainage was excellent, so the scope and the balloon was removed with excellent pa tient tolerance. IMPRESSION: 1. Removal of the stent. 2. Removal of the small stones. PLAN: Resume diet and resume Coumadin. Dictated By: TAMMIE WATSON/ARI Conf#: [id number] DID#: [id number] CC: TAMMIE MCCARTNEY MD;*EndCC*
--- NOTE | 2016-07-13 08:33 | RADRPT ---
PROCEDURE: X-ray fluoroscopy guidance CLINICAL INDICATION: Abdominal pain, ERCP, fluoroscopic guidance TECHNIQUE: Fluoroscopic guidance was utilized for an intraoperative procedure. COMPARISON: None available FINDINGS: Fluoroscopic guidance was utilized for and intraoperative procedure. 2.0 seconds of fluoroscopy time was utilized for the procedure. 3 x-ray images were obtained during the procedure in progress. Imag es demonstrate a wire in the common bile duct and contrast opacification of the common bile duct. P otential obstruction of the distal common bile duct is seen. IMPRESSION: X-ray fluoroscopic guidance utilized for intraoperative procedure. Potential obstruction of the distal common bile duct. Please see procedure note for details. RPTAT: AA .Philip Talamantes MD, Date Time Electronically viewed and signed by .Philip Talamantes MD, on 07/13/2016 08:33 .P/
[2016-07-13] MEDS: metroNIDAZOLE 500 MG TAB PO SCH ×3 (10:24→21:00)
[2016-07-13] MEDS: AMIODARONE 200 MG TAB PO SCH (10:25)
[2016-07-13] MEDS: METOPROLOL (XL) 25 MG TAB PO SCH (10:25)
--- NOTE | 2016-07-13 17:05 | CONS ---
Date/Time of Note Date/Time of Note DATE: 07/13/16 TIME: 17:04 Assessment/Plan Assessment/Plan Additional Assessment/Plan IMPRESSION: 1. Status post-surgery for incarcerated inguinal hernia. 2. Status post biliary stent for choledocholithiasis. 3. Atrial fibrillation. 4. Chronic renal insufficiency. 5. Prosthetic aortic valve. 6.s/p removal of stone and stent Plan pt stable Consultation Date/Type/Reason Admit Date/Time Jul 07, 2016 at 17:33 Initial Consult Date 07/07/16 Type of Consultation: Gen Surgical Referring Provider: SUE INFANTE MD- 24 HR Interval Summary Constitutional: improved, no complaints Exam/Review of Systems Vital Signs Vitals Vital Signs Date Time Temp Pulse Resp B/P Pulse Ox O2 Delivery O2 Flow Rate FiO2 07/13/16 07:54 82 22 140/63 93 07/12/16 20:11 99.1 07/12/16 12:04 Room Air 07/12/16 11:23 2.0 Intake and Output 07/12/16 07/12/16 07/13/16 15:00 23:00 07:00 Intake Total 840 ml 320 ml Output Total 760 ml 550 ml Balance 80 ml -230 ml Exam Constitutional: alert, oriented, well developed Psych: nl mood/affect, no complaints Head: atraumatic, normocephalic Eyes: EOMI, PERRL, nl conjunctiva, nl lids, nl sclera ENMT: nl external ears & nose, nl lips & teeth, nl nasal mucosa & septum Neck: non-tender, supple Respiratory: clear to auscultation, normal air movement Cardiovascular: nl pulses, regular rate and rhythm Gastrointestinal: nl liver, spleen, non-tender, soft Musculoskeletal: nl extremities to inspection, nl gait and stance Extremities: normal pulses 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, nl mental status, nl speech, nl strength Skin: nl turgor, No rash or lesions Lymph: nl lymph nodes Results Result Diagram: 07/13/16 0508 07/13/16 0508 Results 24 hrs Laboratory Tests Test 07/13/16 05:08 Alanine Aminotransferase (ALT/SGPT) 19 Albumin 3.1 L Albumin/Globulin Ratio 0.93 Alkaline Phosphatase 90 Amylase Level 67 Anion Gap 14 Aspartate Amino Transf (AST/SGOT) 29 Basophils # 0.0 Basophils % 0.2 Blood Morphology Comment Blood Urea Nitrogen 32 H Calcium Level 8.8 Carbon Dioxide Level 29 Chloride Level 96 L Creatinine 1.65 H Direct Bilirubin 0.00 Eosinophils # 0.1 Eosinophils % 0.8 Globulin 3.30 H Glucose Level 97 Hematocrit 34.1 L Hemoglobin 11.3 L Indirect Bilirubin 0.4 Lipase 21 L Lymphocytes # 1.2 Lymphocytes % 10.5 L Mean Corpuscular Hemoglobin 27.5 L Mean Corpuscular Hemoglobin Concent 33.2 Mean Corpuscular Volume 82.8 Mean Platelet Volume 7.6 Monocytes # 1.4 H Monocytes % 12.6 H Neutrophils # 8.7 H Neutrophils % 75.9 Nucleated Red Blood Cells # 0.0 Nucleated Red Blood Cells % 0.0 Platelet Count 174 # Potassium Level 4.1 Red Blood Count 4.12 L Red Cell Distribution Width 16.0 H Sodium Level 135 Total Bilirubin 0.4 Total Protein 6.4 White Blood Count 11.5 #H Medications Medications Current Medications Amiodarone HCl (Cordarone) 100 mg DAILY PO Last administered on 07/13/16 10:25 ; Admin Dose 100 MG; Start 07/08/16 at 09:00 Metoprolol Succinate (Toprol Xl) 25 mg DAILY PO Last administered on 07/13/16 10:25; Admin Dose 25 MG; Start 07/08/16 at 09:00 Atorvastatin Calcium (Lipitor) 40 mg HS PO Last administered on 07/12/16 20:20 ; Admin Dose 40 MG; Start 07/07/16 at 21:00 Ondansetron HCl (Zofran Inj) 4 mg Q4H PRN IV NAUSEA AND/OR VOMITING; Start 07/07 at 19:00 Morphine Sulfate (morphine) 2 mg Q3H PRN IV PAIN LEVEL 6-10 Last administered on 07/08/16 08:32; Admin Dose 2 MG; Start 07/07/16 at 19:00 Hydralazine HCl (Apresoline) 10 mg Q6H PRN IV sbp >180 or dbp >100 Last administered on 07/10/16 20:53; Admin Dose 10 MG; Start 07/07/16 at 19:00 Senna/Docusate Sodium (Senokot-S) 2 tab BID PRN PO CONSTIPATION Last administered on 07/09/16 09:30; Admin Dose 2 TAB; Start 07/08/16 at 16:30 Acetaminophen/ Hydrocodone Bitart ([place] (5/325)) 2 tab Q4H PRN PO Pain 4-6; Start 07/08/16 at 16:30 Acetaminophen/ Hydrocodone Bitart ([place] (5/325)) 1 tab Q4H PRN PO Pain 1-3 Last administered on 07/10/16 23:47; Admin Dose 1 TAB; Start 07/08/16 at 16:30 Ciprofloxacin (Cipro) 250 mg BID@,18 PO Last administered on 07/13/16 06:13 ; Admin Dose 250 MG; Start 07/10/16 at 18:00 Metronidazole (Flagyl) 500 mg TID PO Last administered on 07/13/16 14:06; Admin Dose 500 MG; Start 07/10/16 at 13:00 Bisacodyl (Dulcolax Supp) 10 mg DAILY PRN [place] CONSTIPATION Last administered on 07/11/16 21:11; Admin Dose 10 MG; Start 07/11/16 at 18:00 TAMMIE MCCARTNEY MD Jul 13, 2016 17:05
[2016-07-13] MEDS: HYDROCODONE/APAP (5/325) TAB PO PRN (17:17)
--- NOTE | 2016-07-13 19:09 | CONS ---
DATE OF ADMISSION: 07/07/2016 DATE OF CONSULTATION: 07/12/2016 HISTORY OF PRESENT ILLNESS: An 89-year-old male who underwent surgery for incarcerated inguinal her dallin. He is doing good. The GI consult was called in for removal of the stent. The patient has no nausea, no vomiting, no fever, no chills. OBJECTIVE: VITAL SIGNS: Stable. ABDOMEN: Benign. CARDIOVASCULAR, RESPIRATORY, AND CENTRAL NERVOUS SYSTEM: Grossly within normal limits. IMPRESSION: 1. Biliary stent. 2. Surgery for abdominal hernia. 3. Prosthetic aortic valve. 4. Atrial fibrillation. 5. Chronic renal insufficiency. PLAN: To remove the stent and perform cholangiogram, make sure no stone is left behind. I discusse d the patient and also with Dr. Cosby and they are in agreement for the procedure. Dictated By: TAMMIE WATSON/ARI Conf#: [id number] DID#: [id number] CC: SUE COSBY MD; TAMMIE MCCARTNEY MD;*[facility]*
[2016-07-13 19:33] VITALS: BP 133/63; RESP 18
[2016-07-13] MEDS: ATORVASTATIN 40 MG TAB PO SCH (21:00)
--- NOTE | 2016-07-14 02:10 | SP ---
MEDICAL PROGRESS NOTE: DATE OF VISIT: 07/13/2016 SUBJECTIVE: The patient is feeling a little weak today, but otherwise well. Patient had mild pain and took a pain medication, but otherwise no complaints. OBJECTIVE: VITAL SIGNS: Temperature 98.1, T-max 99.1, which was yesterday, but now afebrile today. Pulse 74 and regular, respirations 18, blood pressure 133/63, oxygen saturation 93% room air. GENERAL: Well-developed, well-nourished male in no acute distress. SKIN: Mild erythema with decreased induration compared to yesterday. Left antecubital fossa. CHEST: Clear to auscultation bilaterally. HEART: Regular rate and rhythm, I/ systolic ejection murmur. ABDOMEN: Soft, nontender, nondistended, normoactive bowel sounds. Wound left lower quadrant and groin area clean, dry and intact. EXTREMITIES: Mild edema. NEUROLOGIC: Nonfocal. LABORATORY EXAMINATION: White blood cell count 11.5, 75.9% neutrophils, hemoglobin 11.3, hematocrit 34.1, platelets 174. Sodium 135, potassium 4.1, chloride 96, bicarbonate 29, BUN 32, creatinine 1.65, blood sugar 97. Albumin 3.1, AST 29, ALT of 19, amylase 67, lipase 21. ASSESSMENT AND PLAN: 1. Choledocholithiasis status post ERCP and stent with stent removal on 2016. Patient remains stable with no increase in abdominal pain, no nausea, vomiting, and no elevation in his enzymes. 2. Status post repair of incarcerated left inguinal hernia. Patient remains well, but white blood cell count mildly elevated as well as low grade fever yesterday. We will continue to monitor the patient and if his white blood cell count normalizes and no fever, patient will likely be able to be discharged home on 07/14/2016. 3. Coronary artery disease/paroxysmal atrial fibrillation/aortic valve replacement/hypertension. This remains stable. We will continue off of the Coumadin and restart this on the day of discharge. We will continue his routine medications and diet. 4. Acute on chronic kidney disease. This is worse, may be related to mild dehydration and yesterday's procedure. Will continue to monitor, encourage oral intake, and repeat in the morning. 5. Discharge planning. This patient with elevated white count, low grade fever. We will continue to monitor and if these normalize tomorrow, patient will likely go home. Dictated By: SUE INFANTE MD SR/ARI Conf#: [id number] DID#: [id number] MTDD
--- NOTE | 2016-07-14 03:27 | PN ---
Date/Time of Note Date/Time of Note DATE: 07/14/16 TIME: 03:22 Assessment/Plan Lines/Catheters IV Catheter Type (from [facility]): Saline Lock Farr in Place (from [facility]): No Assessment/Plan Chief Complaint/Hosp Course 1. Incarcerated recurrent left inguinal hernia with sigmoid colon s/p open repair 07/08. s/p Antibiotics -IV fluids -Medical optimization -Diet as tolerated 2. Small recurrent right inguinal hernia, asymptomatic -monitor 3. Obesity, BMI 34 -nutritional optimization -exercise 4. Cholelithiasis with hx of Choledocholithiasis s/p ERCP and biliary stent s/p removal of stent 07/12. -?eventual lap bruce 5. Constipation and Obesity both as source of recurrence -bowel regimen -weight loss encouraged 6. Paroxysmal A. fib on anticoagulation with coagulopathy -Possible strangulation will need to proceed as soon as possible 7. Hypertension -Diet and medication control -Encourage weight loss 8. COPD -Patient as optimized as possible for surgery however due to and urgency of the surgery will need to proceed anyway's -Pulmonary toilet 9. Coronary artery disease and atherosclerotic disease -Cardiac optimization Thank you, Problems: Subjective 24 Hr Interval Summary s/p ERCP and removal of stent 07/12. Min erythema. Minimal pain. No nausea or vomiting. No fevers or chills. No chest pain or shortness of breath. No headache , visual, or neurologic changes. No dysuria. Redness improved. Exam/Review of Systems Vital Signs Vitals Vital Signs Date Time Temp Pulse Resp B/P Pulse Ox O2 Delivery O2 Flow Rate FiO2 07/13/16 19:33 98.1 74 18 133/63 93 07/12/16 12:04 Room Air 07/12/16 11:23 2.0 Intake and Output 07/13/16 07/13/16 07/14/16 15:00 23:00 07:00 Intake Total 840 ml Output Total 700 ml Balance 140 ml Exam Free Text/Dictation GENERAL: No acute distress, morbidly obese SKIN: Without rashes or jaundice. HEENT: EOMI, PERRLA. Oropharynx clear without exudate. No icterus. NECK: No JVD. Supple. NT. No lymphadenopathy. N LUNGS: Normal respiratory effort HEART: Bradycardic, but regular. ABDOMEN: Obese. Incarcerated left inguinal hernia with min erythema. Tender. No rebound, guarding, rigidity. GENITOURINARY: Normal male. No masses. RECTAL: Heme negative per primary EXTREMITIES: Trace edema bilaterally. Moves extremities grossly. NEUROLOGIC: Nonfocal. PSYCH: Normal mood Results Result Diagram: 07/13/16 0508 07/13/16 0508 ROLANDA CALDWELL MD Jul 14, 2016 03:27
[2016-07-14 05:06] LABS: BASOPHILS % 0.4 % (0.0-2.0); EOSINOPHILS # 0.1 10^3/ul (0.0-0.5); EOSINOPHILS % 1.2 % (0.0-7.0); HEMATOCRIT 32.2 % (42.0-52.0); LYMPHOCYTES # 0.9 10^3/ul (0.8-2.9); LYMPHOCYTES % 9.7 % (15.0-51.0); MEAN CORPUSCULAR HGB CONC 34.1 g/dl (32.0-37.0); MEAN CORPUSCULAR VOLUME 82.1 fl (82.0-101.0); MEAN PLATELET VOLUME 7.3 fl (7.4-10.4); MONOCYTE # 1.6 10^3/ul (0.3-0.9); MONOCYTES % 16.9 % (0.0-11.0); NEUTROPHIL # 6.8 10^3/ul (1.6-7.5); NEUTROPHILS % 71.8 % (39.0-77.0); PLATELET COUNT 162 10^3/UL (140-440); RED BLOOD COUNT 3.92 10^6/ul (4.70-6.10); RED CELL DISTRIBUTION WIDTH 16.3 % (11.5-14.5); UNCORRECTED WBC 9.5 10^3/ul (4.8-10.8); WHITE BLOOD COUNT 9.5 10^3/ul (4.8-10.8)
[2016-07-14 05:09] LABS: INR 1.28; PROTIME 16.1 Sec (12.2-14.2); PT RATIO 1.3
[2016-07-14] MEDS: CIPROFLOXACIN 250 MG TAB PO SCH (05:25)
[2016-07-14 05:26] LABS: ALBUMIN 2.9 g/dl (3.3-4.9); POTASSIUM 3.9 mmol/L (3.5-5.1)
[2016-07-14 05:29] LABS: ALBUMIN/GLOBULIN RATIO 0.93; BILIRUBIN,INDIRECT 0.4 mg/dl (0-1.1); BILIRUBIN,TOTAL 0.4 mg/dl (0.2-1.3); CREATININE 1.58 mg/dl (0.61-1.24)
[2016-07-14 05:30] LABS: CALCIUM 8.7 mg/dl (8.4-10.2)
[2016-07-14 05:51] LABS: CONDITION 1; LH ANALYZER COMMENTS 1
[2016-07-14 07:33] VITALS: BP 128/60; RESP 20
--- NOTE | 2016-07-14 08:54 | PDOCDIS ---
Discharge Instructions DIAGNOSIS Discharge Diagnosis: incarcerated inguinal hernia CONDITION Patient Condition: Good HOME CARE INSTRUCTIONS: Special Diet: Low Cholesterol, Low Fat, 2 gm Na ACTIVITY: Activity Restrictions: Slowly Increase Activity FOLLOW UP/APPOINTMENTS Appointments pt to follow up with Dr Cosby within 2wks; call for appointment; follow up with Dr. Lee per Dr. Lee's request REFERRALS Agency Name and Phone Number: [facility] SUE COSBY MD- Jul 14, 2016 08:54
[2016-07-14] MEDS ORDERED: WARFARIN 2 MG TAB PO ONE (09:16)
[2016-07-14] MEDS: metroNIDAZOLE 500 MG TAB PO SCH (09:27)
[2016-07-14] MEDS: AMIODARONE 200 MG TAB PO SCH (09:28)
[2016-07-14] MEDS: METOPROLOL (XL) 25 MG TAB PO SCH (09:28)
--- NOTE | 2016-07-14 11:28 | SP ---
MEDICAL PROGRESS NOTE: DATE OF VISIT: 07/14/2016 SUBJECTIVE: The patient is without complaint. Feels a little bit weak but overall better. No pain. OBJECTIVE: VITAL SIGNS: Temperature 99.0, pulse 83, respirations 20, blood pressure 128/60 , oxygen saturation 95% on room air. GENERAL: Well-developed, well-nourished male in no acute distress. CHEST: Clear to auscultation bilaterally. HEART: Regular rate and rhythm. There is a 1/6 systolic ejection murmur. ABDOMEN: Soft, nontender, nondistended. Wound in the left groin is clean, dry and intact. No erythema, no drainage. LABORATORY DATA: Sodium 135, potassium 3.9, chloride 99, bicarbonate 28, BUN 35 , creatinine 1.58, white blood cell count 9.5, hemoglobin 11.0, hematocrit 32.2 , platelets of 162. INR 1.28 ASSESSMENT AND PLAN: 1. Status post repair of incarcerated left inguinal hernia. The patient has low grade fever today, but white count is normal. The patient is feeling better. Patient is stable for discharge home. We will continue p.o. antibiotics, both Cipro and Flagyl after discharge. 2. Choledocholithiasis, status post endoscopic retrograde cholangiopancreatography and status post stent removal. Patient remains stable and no issues with respect to the removal of the stent. Continue with advancing diet. 3. Coronary artery disease/paroxysmal atrial fibrillation/hypertension. The patient is doing well. Continue patient's medications and resume his Coumadin and give 4 mg Coumadin prior to discharge. 4. Acute on chronic renal insufficiency. This is improved. We will continue to monitor it as an outpatient. 6. Discharge plans: The patient is stable for discharge. We will have patient get home health after discharge to assist with his recovery. Dictated By: SUE INFANTE MD, SR/ARI Conf#: [id number] DID#: [id number] ROSENDO
[2016-07-14] MEDS ORDERED: METR500T14 PO (12:00)
[2016-07-14] MEDS ORDERED: CIPR-193 PO (12:00)
--- NOTE | 2016-07-14 19:15 | PN ---
Date/Time of Note Date/Time of Note DATE: 07/14/16 TIME: 19:14 Assessment/Plan Lines/Catheters IV Catheter Type (from [facility]): Saline Lock Farr in Place (from [facility]): No Assessment/Plan Chief Complaint/Hosp Course 1. Incarcerated recurrent left inguinal hernia with sigmoid colon s/p open repair 07/08. -DC planning -Diet as tolerated 2. Small recurrent right inguinal hernia, asymptomatic -monitor 3. Obesity, BMI 34 -nutritional optimization -exercise 4. Cholelithiasis with hx of Choledocholithiasis s/p ERCP and biliary stent s/p removal of stent 07/12. -?eventual lap bruce 5. Constipation and Obesity both as source of recurrence -bowel regimen -weight loss encouraged 6. Paroxysmal A. fib on anticoagulation with coagulopathy -Possible strangulation will need to proceed as soon as possible 7. Hypertension -Diet and medication control -Encourage weight loss 8. COPD -Patient as optimized as possible for surgery however due to and urgency of the surgery will need to proceed anyway's -Pulmonary toilet 9. Coronary artery disease and atherosclerotic disease -Cardiac optimization Thank you, Problems: Subjective 24 Hr Interval Summary s/p ERCP and removal of stent 07/12. Min erythema. Minimal pain. No nausea or vomiting. No fevers or chills. No chest pain or shortness of breath. No headache , visual, or neurologic changes. No dysuria. Redness improved. Exam/Review of Systems Vital Signs Vitals Vital Signs Date Time Temp Pulse Resp B/P Pulse Ox O2 Delivery O2 Flow Rate FiO2 07/14/16 07:33 99.0 83 20 128/60 95 07/12/16 12:04 Room Air 07/12/16 11:23 2.0 Intake and Output 07/13/16 07/13/16 07/14/16 14:59 22:59 06:59 Intake Total 840 ml 640 ml Output Total 700 ml 550 ml Balance 140 ml 90 ml Exam Free Text/Dictation GENERAL: No acute distress, morbidly obese SKIN: Without rashes or jaundice. HEENT: EOMI, PERRLA. Oropharynx clear without exudate. No icterus. NECK: No JVD. Supple. NT. No lymphadenopathy. N LUNGS: Normal respiratory effort HEART: Bradycardic, but regular. ABDOMEN: Obese. Incarcerated left inguinal hernia with min erythema. Tender. No rebound, guarding, rigidity. GENITOURINARY: Normal male. No masses. RECTAL: Heme negative per primary EXTREMITIES: Trace edema bilaterally. Moves extremities grossly. NEUROLOGIC: Nonfocal. PSYCH: Normal mood Results Result Diagram: 07/14/165 07/14/16 0425 ROLANDA CALDWELL MD Jul 14, 2016 19:15
== END 2016-07-14 12:55 | disposition home health service (06) | DRG 352 ==
LOC: E/R 12:00 → MS2 17:33
PROVIDERS: ADMIT Internal Medicine; ATTEND Internal Medicine
PROC: 0YU60JZ Supplement Left Inguinal Region with Synthetic Substitute, Open Approach (ICD-10-PCS; principal; 2016-07-08 11:30)
PROC: 0FC98ZZ Extirpation of Matter from Common Bile Duct, Via Natural or Artificial Opening Endoscopic (ICD-10-PCS; 2016-07-12)
PROC: 0FPB8DZ Removal of Intraluminal Device from Hepatobiliary Duct, Via Natural or Artificial Opening Endoscopic (ICD-10-PCS; 2016-07-12)
DX: K40.31 Unilateral inguinal hernia, with obstruction, without gangrene, recurrent (principal); J44.9 Chronic obstructive pulmonary disease, unspecified; I12.9 Hypertensive chronic kidney disease with stage 1 through stage 4 chronic kidney disease, or unspecified chronic kidney disease; I25.10 Atherosclerotic heart disease of native coronary artery without angina pectoris; E66.9 Obesity, unspecified; Z68.34 Body mass index [BMI] 34.0-34.9, adult; Z95.2 Presence of prosthetic heart valve; Z79.01 Long term (current) use of anticoagulants; K59.00 Constipation, unspecified; N18.9 Chronic kidney disease, unspecified; R73.9 Hyperglycemia, unspecified; K80.50 Calculus of bile duct without cholangitis or cholecystitis without obstruction
CPT/HCPCS: 74176; 74330; 80048; 80053; 81001; 81003; 82150; 83690; 83735; 84484; 85025; 85610; 85730; 88302; 93005; 97162; C1781; J0360; J0690; J0744; J1100; J1644; J2270; J2370; J2405; J2710; J2765; J3010; J7030; Q9967